=== PATIENT | male | born 1980 | race Caucasian/White ===

== ENCOUNTER 2021-10-12 09:10 | Emergency (ER) | payer OTHER, SELFPAY ==
[2021-10-12 09:20] VITALS: BP 138/84; PULSE 98; RESP 22; TEMP 37.7; O2SAT 98; BMI 30.8
--- NOTE | 2021-10-12 10:21 | HMH.EDUTC ---
[facility] [place]: Flu Disposition: Home, Self-Care Condition on Discharge: Good Instructions: DI for Influenza -- Adult Additional Instructions: covid swab was sent to lab, call tomorrow for results. self isolate until test results are known to be negative No sign of a bacterial infection. Likely viral. Viruses can take 7-14 days to run their course. Nasal saline and bulb syringe or nose Maren to remove nasal drainage to help with nasal congestion. Hard to eat, drink, sleep with nasal congestion so important to keep this cleaned out. Monitor temp. Tylenol or Motrin as needed for pain or fever Encourage fluids, water, Gatorade, Powerade, Pedialyte if infant/toddler/child Warm salt water gargles Warm fluids Sore throat lozenges Sleep elevated Humidifier/vaporizer Follow-up immediately for new or worsening symptoms or no noticeable improvement over the next 48-72 hours. Prescriptions: Oseltamivir Phosphate [Tamiflu 75mg Capsule] 75 mg PO BID #10 cap Transmission Status: Pending to [facility] #[id number] ondansetron HCL [Zofran 4mg Tab*] 4 mg PO TIDP PRN 5 Days #14 tab PRN Reason: Nausea Transmission Status: Pending to [facility] #[id number] Referrals: Provider,Referral, MD [Primary Care Provider] - Time of Disposition: 10:29 Medical Decision Making - Baljeet Inquiry Pt receiving controlled substance: No Vital Signs: 10/12/21 09:20 Temperature 99.9 F H Temperature Source Oral Pulse Rate [Right Brachial] 98 H Respiratory Rate 22 Blood Pressure [Right Arm] 138/84 Blood Pressure Mean [Right Arm] 102 Blood Pressure Source [Right Arm] Automatic Cuff Blood Pressure Position [Right Arm] Sitting 02 Sat by Pulse Oximetry 98 Oxygen Delivery Method Room Air - Lab Data Lab Results 10/12/21 09:51: Influenza Type A Ag Positive A, Influenza Type B Ag Positive A Orders (Tests/Meds): ORDERS Category Date Time Status Covid-19 Nasal PCR ([facility]) Routine Lab 10/12/21 09:38 [place] [facility] [place] - General Chief complaint: [facility] Stated complaint: covid symptoms Time Seen by Provider: 10/12/21 10:21 Mode of Arrival: Ambulatory Source of Information: Patient Limitations: No Limitations Description of Symptoms (Recalled from Triage Doc. by RN): PATIENT C/O PAIN WITH BREATHING, SINUS CONGESTION, HEADACHE, AND BODY ACHES SINCE YESTERDAY HEENT Symptoms (Recalled from RN notes): Yes Resp Symptoms (Recalled from RN notes): Yes Skin Symptoms (Recalled from RN notes): No MS Symptoms (Recalled from RN notes): No Functional Status (Recalled from RN notes): WNL - History of Present Illness Provider Complaint: 40 yr old male presents for nasal congestion,body aches, cough, soa and nausea. - Related Data Home Medications Medication Instructions Recorded Confirmed Amlodipine/Atorvastatin 1 each PO DAILY 10/12/21 10/12/21 [Amlodipine-Atorvast 10-10 mg] Lansoprazole [Prevacid] 30 mg PO DAILY 10/12/21 10/12/21 Previous Rx's Medication Instructions Recorded Oseltamivir Phosphate [Tamiflu 75 mg PO BID #10 cap 10/12/21 75mg Capsule] ondansetron HCL [Zofran 4mg Tab*] 4 mg PO TIDP PRN 5 Days #14 tab 10/12/21 Allergies Allergy/AdvReac Type Severity Reaction Status Date / Time fexofenadine [From Rachana] Allergy Verified 10/12/21 09:53 Penicillins Allergy Verified 10/12/21 09:53 Sulfa (Sulfonamide Allergy Verified 10/12/21 09:53 Antibiotics) trimethoprim Allergy Verified 10/12/21 09:53 - Worker's Comp Is this a Worker's Comp case?: No [facility] History - Hepatitis A Screen Drug use history?: No High risk sexual behaviors?: No History of sexually transmitted infection?: No Currently employed?: No Childcare worker?: No Do you have indoor plumbing?: Yes Do you have electricity?: Yes Attestation statement:: This patient has been screened for Hepatitis A risk factors. I have reviewed the patient's past medical history: Yes ROS Ob
[2021-10-12 10:22] LABS: UTC Influenza A Antigen Positive (Negative)
[2021-10-12 10:23] LABS: UTC Influenza B Antigen Positive (Negative)
[2021-10-12 10:31] VITALS: BP 138/84; PULSE 98; RESP 22; TEMP 37.7; O2SAT 98
== END 2021-10-12 10:37 | disposition home or self-care (01) ==
PROVIDERS: Emergency Provider Nurse Practitioner Family
DX: J10.1 Influenza due to other identified influenza virus with other respiratory manifestations (principal)
CPT/HCPCS: 87804; 99202; C9803; G0463; U0003; U0005

== ENCOUNTER 2022-01-04 12:25 | Emergency (ER) | payer BC, SELFPAY ==
[2022-01-04 12:45] VITALS: BP 140/69; PULSE 92; RESP 18; TEMP 36.7; O2SAT 97; BMI 30.8
--- NOTE | 2022-01-04 12:56 | HMH.EDUTC ---
[facility] – [place], [place] Disposition Clinical Impression: Maxillary sinusitis, acute Qualifiers: Recurrence: non-recurrent Qualified Code(s): J01.00 - Acute maxillary sinusitis, unspecified Disposition: Home, Self-Care Condition on Discharge: Good Instructions: DI for Sinusitis Additional Instructions: Start antibiotic patient to take as ordered for a full length of time even if you feel better. Sinus infections do not get better overnight. It may take 2-3 days to notice much improvement so be sure to use conservative measures as discussed for symptoms. Flonase 1 spray each nostril daily to help with nasal congestion, sinus and ear pressure/information Increase fluids Humidifier/vaporizer as needed Tylenol and ibuprofen as needed for fever or pain. If symptoms do not improve or get worse return or be seen in the ER Follow-up with primary care this week Prescriptions: Fluticasone Propionate [Flonase 50mcg nasal spray 16gm] 1 spr NS DAILY 14 Days #9.9 ml Prescription Printed Azithromycin [Zithromax 250mg tab] 250 mg PO DIRECTED #6 tab Prescription Printed Referrals: Provider,Referral, [Primary Care Provider] - Time of Disposition: 13:02 Medical Decision Making - Baljeet Inquiry Pt receiving controlled substance: No Orders (Tests/Meds): ED MEDICATIONS Generic Name Dose Route Start Last Admin Trade Name Deisy PRN Reason Stop Dose Admin Dexamethasone Sodium Phosphate 4 mg 01/04/22 12:56 Dexamethasone 4mg/Ml 1ml Vial IM 01/04/22 12:57 ONCE ONE [facility] – [place], [place] HPI - General Chief complaint: Urgent Treatment Center Stated complaint: sore throat, congestion Time Seen by Provider: 01/04/22 12:56 Mode of Arrival: Ambulatory Source of Information: Patient Limitations: No Limitations - History of Present Illness Provider Complaint: 41 yr old male presents for sinus pressure, sinus congestion, green/yellow nasal discharge for a couple weeks but getting worse. - Related Data Home Medications Medication Instructions Recorded Confirmed Amlodipine/Atorvastatin 1 each PO DAILY 10/12/21 10/12/21 [Amlodipine-Atorvast 10-10 mg] Lansoprazole [Prevacid] 30 mg PO DAILY 10/12/21 10/12/21 Previous Rx's Medication Instructions Recorded Oseltamivir Phosphate [Tamiflu 75 mg PO BID #10 cap 10/12/21 75mg Capsule] ondansetron HCL [Zofran 4mg Tab*] 4 mg PO TIDP PRN 5 Days #14 tab 10/12/21 Azithromycin [Zithromax 250mg 250 mg PO DIRECTED #6 tab 01/04/22 tab] Fluticasone Propionate [Flonase 1 spr NS DAILY 14 Days #9.9 ml 01/04/22 50mcg nasal spray 16gm] Allergies Allergy/AdvReac Type Severity Reaction Status Date / Time fexofenadine [From Rachana] Allergy Verified 10/12/21 09:53 Penicillins Allergy Verified 10/12/21 09:53 Sulfa (Sulfonamide Allergy Verified 10/12/21 09:53 Antibiotics) trimethoprim Allergy Verified 10/12/21 09:53 [facility] History - Hepatitis A Screen Attestation statement:: This patient has been screened for Hepatitis A risk factors. I have reviewed the patient's past medical history: Yes ROS Obtained: Yes Systems reviewed as appropriate & no additional complaints - Constitutional Constitutional: Reports system reviewed and no additional complaints, except as docu, Denies fever(s) - Eyes Eyes: Reports system reviewed and no additional complaints, except as docu, Denies blurry vision - ENT Ears, Nose, Mouth, and Throat: Reports system reviewed and no additional complaints, except as docu, Denies bleeding gums, Reports nasal congestion, Reports nasal discharge, Reports sinus pain, Reports sinus pressure - Cardiovascular Cardiovascular: Reports system reviewed and no additional complaints, except as docu, Denies chest pain - Respiratory Respiratory: Reports system reviewed and no additional complaints, except as docu, Reports change in phlegm color, Denies cough - Gastrointestinal Gastrointestingal: Reports: system reviewed and no additional complaints, exc
[2022-01-04 13:09] VITALS: BP 140/69; PULSE 92; RESP 18; TEMP 36.7; O2SAT 97
== END 2022-01-04 13:17 | disposition home or self-care (01) ==
PROVIDERS: Emergency Provider Nurse Practitioner Family
DX: J01.00 Acute maxillary sinusitis, unspecified (principal); Z79.51 Long term (current) use of inhaled steroids; Z79.899 Other long term (current) drug therapy; Z88.2 Allergy status to sulfonamides; Z88.8 Allergy status to other drugs, medicaments and biological substances
CPT/HCPCS: 96372; 99283

== ENCOUNTER → 2022-11-10 13:30 | Outpatient (CLI) | payer BC, SELFPAY | PROVIDERS: PCP Student in an Organized Health Care Education/Training Program; Visit Provider Student in an Organized Health Care Education/Training Program | DX: U07.1 COVID-19 (principal); R68.89 Other general symptoms and signs | CPT/HCPCS: C9803; U0003; U0005 ==

== ENCOUNTER → 2023-03-20 15:32 | Outpatient (CLI) | payer BC, SELFPAY | PROVIDERS: PCP Nurse Practitioner Family; Visit Provider Nurse Practitioner Family | DX: J02.9 Acute pharyngitis, unspecified (principal) | CPT/HCPCS: 87070 ==

== ENCOUNTER 2023-07-20 16:55 | Emergency (ER) | payer BC, SELFPAY ==
[2023-07-20 16:56] VITALS: BP 161/97; PULSE 98; RESP 16; TEMP 36.8; O2SAT 100; BMI 31.7
--- NOTE | 2023-07-20 17:24 | ECG_ITS ---
APPROVED REPORT Exam: Resting ECG HR:86 bpm ECG Measurements Heart Rate 86 AXES SD 143 P 50 QRSd 86 QRS 60 QT 346 T 29 QTc 389 Conclusion SINUS RHYTHM POSSIBLE RIGHT VENTRICULAR CONDUCTION DELAY [RSR (QR) IN V1/V2] BORDERLINE ECG UNCONFIRMED REPORT Electronically signed by : Ephraim Lara MD 07/21/2023 19:57:44
[2023-07-20 17:30] VITALS: BP 139/91; PULSE 77; O2SAT 99
[2023-07-20 18:00] VITALS: BP 123/83; PULSE 82; O2SAT 96
[2023-07-20 18:30] VITALS: BP 118/68; PULSE 85; O2SAT 99
--- NOTE | 2023-07-20 18:42 | HMH.EDGENADL ---
Discharge Plan Disposition Patient Disposition: Home, Self-Care Chief Complaint: Recheck/Abnormal Lab/Rx Prescriptions Prescriptions: No Action fluticasone propionate 50 mcg/actuation spray,suspension 1 spray intranasal DAILY Qty: 16 2RF Rx Instructions: administer into each nostril methylprednisolone 4 mg tablets,dose pack See Rx Instructions PO PER PKG DIR Qty: 21 0RF Rx Instructions: PO PER PKG DIR pseudoephedrine HCl 120 mg tablet extended release 120 mg PO Q12H PRN (Reason: nasal congestion) Qty: 14 0RF amlodipine-atorvastatin 1 EACH tablet 1 each PO DAILY lansoprazole 30 MG capsule,delayed release(DR/EC) 30 mg PO DAILY Referrals Follow up/Referrals: Provider,Referral, MD [Primary Care Provider] - See instructions Activity Restrictions/Add. Instructions Additional Instructions/Restrictions: Follow-up with your family doctor. Call your family doctor to establish care for this visit to the emergency department and schedule follow-up within 48 hours to ensure improvement. If you have any worsening of your condition or any other concerning signs or symptoms, return to the emergency department or your primary care doctor for further evaluation. Purchase blood pressure cuff and take your blood pressure 2-3 times a day. It will be higher in the mornings, lower at night. Be sure that you have not ingested caffeine, chewed gum, and your arms and legs are uncrossed, you are relaxed and breathing normally while taking blood pressures. Clinical Impressions Clinical Impression: Asymptomatic hypertension Discharge ED Provider: Sebastian [facility] HPI General Chief complaint: Recheck/Abnormal Lab/Rx Stated complaint: BP high Time Seen by Provider: 07/20/23 17:16 Mode of Arrival: Ambulatory Source of Information: Patient Limitations: No Limitations Description of Symptoms (Recalled from ER Triage Doc. by RN): Patient states he went and got his blood pressure checked by the nurse at work and that his BP was elevated so they requested he see his PCP. States he called his PCP to make an appointment and was directed to come to the emergency room for more evaluation History of Present Illness HPI narrative: 42-year-old patient with no relevant medical history presenting with hypertension. Patient's blood pressure was elevated today when checked by nurse at primary care doctor. PCP recommended he come to the ER. No symptoms. Related Data Home Medications Medication Instructions Recorded Confirmed amlodipine 10 mg-atorvastatin 10 1 each PO DAILY Hypertension 10/12/21 06/25/23 mg tablet lansoprazole 30 mg capsule,delayed 30 mg PO DAILY GERD 10/12/21 06/25/23 release Previous Rx's Medication Instructions Recorded fluticasone propionate 50 1 spray intranasal DAILY #16 grams 06/25/23 mcg/actuation nasal spray,suspension methylprednisolone 4 mg tablets in See Rx Instructions PO PER PKG DIR 06/25/23 a dose pack #21 tabs pseudoephedrine HCl 120 mg 120 mg PO Q12H PRN nasal 06/25/23 tablet,extended release congestion #14 tabs Allergies Allergy/AdvReac Type Severity Reaction Status Date / Time fexofenadine [From Rachana] Allergy Verified 06/25/23 13:02 Penicillins Allergy Verified 06/25/23 13:02 Sulfa (Sulfonamide Allergy Verified 06/25/23 13:02 Antibiotics) trimethoprim Allergy Verified 06/25/23 13:02 [facility] Disclaimer: The information contained in this section may have been updated after the patient was seen, as this information can be updated by other users. Medical History Flu Maxillary sinusitis, acute Social History Smoking Status: Never smoker alcohol intake: current substance use type: denies use current occupational status: employed Travel in the last 8 weeks: None ROS Obtained: Yes All systems reviewe
[2023-07-20 18:54] VITALS: BP 118/68; PULSE 82; RESP 18; TEMP 36.6; O2SAT 100
== END 2023-07-20 19:07 | disposition home or self-care (01) ==
PROVIDERS: Emergency Provider Emergency Medicine
DX: I10 Essential (primary) hypertension (principal)
CPT/HCPCS: 93005; 99282; 99283

== ENCOUNTER → 2023-08-11 08:10 | Outpatient (CLI) | payer BC, SELFPAY | PROVIDERS: PCP Nurse Practitioner Family; Visit Provider Student in an Organized Health Care Education/Training Program | DX: J02.9 Acute pharyngitis, unspecified (principal); B95.4 Other streptococcus as the cause of diseases classified elsewhere | CPT/HCPCS: 87070 ==

== ENCOUNTER → 2023-10-27 23:07 | Outpatient (CLI) | payer BC, SELFPAY | PROVIDERS: PCP Nurse Practitioner Family; Visit Provider Student in an Organized Health Care Education/Training Program | DX: J02.9 Acute pharyngitis, unspecified (principal) | CPT/HCPCS: 87070 ==

== ENCOUNTER 2024-12-29 09:50 | Outpatient (CLI) | payer BC, SELFPAY ==
[2024-12-29 16:02] LABS: Basophils % 0.3 % (0.1-2.0); Eosinophils # 0.3 K/mm3 (0.0-0.4); Eosinophils % 2.2 % (0.1-12.0); Hematocrit 44.9 % (42.0-52.0); Hemoglobin 15.1 g/dL (14.1-18.0); Mean Corpuscular HGB Conc 33.6 g/dL (31.8-35.4); Mean Corpuscular Hemoglobin 31.6 pg (27.0-31.2); Mean Corpuscular Volume 93.9 fl (80-94); Monocytes # 1.2 K/mm3 (0.1-1.0); Monocytes % 8.2 % (1.7-9.3); Neutrophils # 11.4 K/mm3 (1.8-7.8); Platelet Count 356 K/mm3 (142-424); Red Blood Count 4.78 M/mm3 (4.60-6.20); Red Cell Distribution Width 12.3 % (11.5-17.5)
[2024-12-29 16:21] LABS: MANUAL DIFFERENTIAL MANUAL DIFFERENTIAL (MANUAL DIFF)
[2024-12-29 16:25] LABS: Hemoglobin A1C 5.6 % (4.0-6.0)
[2024-12-29 16:31] LABS: Alanine Aminotransferase 42 U/L (12-78); Albumin Level 5.3 g/dl (3.5-5.0); Albumin/Globulin Ratio 2.3 (1.1-1.8); Alkaline Phosphatase 104 U/L (38-126); Anion Gap 17.7 mEq/L (5-15); Aspartate Amino Transferase 37 U/L (17-59); Bilirubin,Total 0.4 mg/dl (0.2-1.3); Blood Urea Nitrogen 13 mg/dl (9-20); Calcium 9.6 mg/dl (8.4-10.2); Carbon Dioxide 29 mmol/L (22.0-30.0); Chloride 101 mmol/L (98-107); Chol/HDL Ratio 4.9 (1-3.5); Cholesterol 146 mg/dl (140-200); Estimated Glomerular Filt Rate 124 ml/min (>60); GFR (African American) 150 ML/MIN (>60); Globulin 2.3 g/dL (1.3-3.2); Glucose 93 mg/dl (74-100); HDL Cholesterol 30 mg/dl (40-60); Potassium 4.7 mmoL/L (3.5-5.1); Sodium 143 mmol/L (136-145); Total Protein,Serum 7.6 g/dl (6.3-8.2); Triglycerides 310 mg/dl (30-150); VLDL Cholesterol 62 mg/dL (0-40)
[2024-12-29 16:58] LABS: Eosinophils % 4 % (0-3); Lymphocytes % 15 % (10-50); Monocytes % 5 % (2-9); Neutrophils % 76 % (42-76); Platelet Estimate Normal; RBC Morphology Normal; Total Cells Counted 100
[2024-12-29 17:11] LABS: HIV Combo NEGATIVE (Negative)
[2024-12-29 17:19] LABS: Hepatitis C Ab Qual. W/ RFX NEGATIVE (Negative)
== END 2024-12-29 23:59 | disposition home or self-care (01) ==
LOC: LAB.DROPOF 12-30 13:10
PROVIDERS: PCP Internal Medicine; Visit Provider Internal Medicine
DX: Z11.4 Encounter for screening for human immunodeficiency virus [HIV] (principal); Z11.59 Encounter for screening for other viral diseases; Z13.1 Encounter for screening for diabetes mellitus; Z13.220 Encounter for screening for lipoid disorders
CPT/HCPCS: 36415; 80053; 80061; 83036; 85007; 85025; 85027; 86803; 87389